=== PATIENT | male | born 1955 | race Caucasian/White ===

== ENCOUNTER 2017-08-17 12:23 | Emergency (ER) | payer BC ==
[2017-08-17 13:41] VITALS: BP 110/71
== END 2017-08-17 13:41 | disposition home or self-care (01) ==
LOC: ED 12:23
DX: S20.219A Contusion of unspecified front wall of thorax, initial encounter (principal); M54.9 Dorsalgia, unspecified; E11.9 Type 2 diabetes mellitus without complications; V43.52XA Car driver injured in collision with other type car in traffic accident, initial encounter; Y93.I9 Activity, other involving external motion; Y92.488 Other paved roadways as the place of occurrence of the external cause; Y99.8 Other external cause status